=== PATIENT | female | born 1945 | race Caucasian/White ===

== ENCOUNTER 2024-07-31 06:00 | Day surgery (SDC) | payer MEDICARE ==
[2024-07-27 09:25] VITALS: BMI 25.1
[2024-07-31] MEDS ORDERED: Bupivacaine HCl 0.5%/Epinephrine 1:200,000/PF 30 ml Vial ONE (06:14)
[2024-07-31] MEDS ORDERED: PROPOFOL 20 ML ONE (07:42)
[2024-07-31] MEDS ORDERED: Ondansetron PF 4 MG/2 ML Vial ONE (07:42)
[2024-07-31] MEDS ORDERED: Dexamethasone 20 MG/5 ML VIAL ONE (07:42)
[2024-07-31] MEDS ORDERED: Lidocaine 2% PF 5 ML VIAL ONE (07:42)
[2024-07-31] MEDS ORDERED: CEFAZOLIN 2 GM VIAL ONE (07:42)
[2024-07-31] MEDS ORDERED: ePHEDrine Sulfate 50 MG/10 ML VIAL ONE (07:44)
[2024-07-31] MEDS ORDERED: fentaNYL 50 mcg/mL 1 mL Vial ONE (08:05)
[2024-07-31] MEDS ORDERED: PHENYLEPHRINE-NS 100 MCG/ML 10 ML SYRINGE ONE (08:18)
== END 2024-07-31 09:20 | disposition home or self-care (01) ==
LOC: CSHSDC 06:00
PROVIDERS: ATTEND Surgery
PROC: 0JH63WZ Insertion of Totally Implantable Vascular Access Device into Chest Subcutaneous Tissue and Fascia, Percutaneous Approach (ICD-10-PCS; principal; 2024-07-31)
DX: C54.1 Malignant neoplasm of endometrium (principal); I10 Essential (primary) hypertension; E78.00 Pure hypercholesterolemia, unspecified; M19.90 Unspecified osteoarthritis, unspecified site; F32.A Depression, unspecified; E03.9 Hypothyroidism, unspecified; Z79.890 Hormone replacement therapy; Z79.899 Other long term (current) drug therapy
CPT/HCPCS: 36561; 71045; C1788; J1100; J1642; J2001; J2405; J2704; J3010

== ENCOUNTER 2024-09-27 14:25 | Outpatient (CLI) | payer MEDICARE | END 2024-09-27 14:26 | disposition home or self-care (01) | LOC: CSHRAD 14:25 | PROVIDERS: ATTEND Internal Medicine Hematology & Oncology | DX: R06.02 Shortness of breath (principal); C54.3 Malignant neoplasm of fundus uteri | CPT/HCPCS: 71046 ==